=== PATIENT | female | born 1980 | race Caucasian/White ===

== ENCOUNTER → 2017-06-05 | Outpatient (CLI) | payer OTHER ==
[2017-06-07 19:52] LABS: COAG FACTOR VIII 74 (50-180)
[2017-06-09 19:52] LABS: VWF AG 66 % (50-217)
== END ==
LOC: CLAB 12:35
DX: D68.51 Activated protein C resistance (principal)
CPT/HCPCS: 36415; 85240; 85245; 85246; 85247; 85576; 85730